=== PATIENT | male | born 1945 | race Caucasian/White ===

== ENCOUNTER 2017-03-05 18:16 | Emergency (ER) | payer MEDICARE, BC ==
--- NOTE | 2017-03-05 18:54 | RAD ---
PORTABLE CHEST 03/05/17 PROVIDED CLINICAL HISTORY: None. FINDINGS: Comparison made with the study dated 05/11/08. The cardiac silhouette appears enlarged. There is obscuration of the left cardiac margin which may re flect lingular infiltrate. There is blunting of the left costophrenic angle. Right lung appears clear . There is no evidence for pneumothorax. Left subclavian cardiac pacing device and median sternotomy changes are again seen. IMPRESSION: Left basilar pleural and parenchymal opacities as described above. Please correlate for concerns for pneumonia. Followup is recommended. POS: [facility]
[2017-03-05 19:10] LABS: #Basophils 0.1 thou/uL (0.0-0.2); #Eosinphils 0.1 thou/uL (0.0-0.7); #Lymphocytes 1.2 thou/uL (1.20-3.40); #Monocytes 0.4 thou/uL (0.11-0.59); #Neutrophils 2.3 thou/uL (1.40-6.50); %Basophils 1.4 % (0.0-1.0); %Eosinophils 1.4 % (0.0-10.0); %Lymphocytes 30.3 % (21.0-51.0); %Monocytes 9.3 % (0.0-10.0); %Neutrophils 57.6 % (42.0-75.0); Hemoglobin 13.8 g/dL (14.0-18.0); Mean Corpuscular HGB CONC 34.9 g/dL (32.0-36.0); Mean Corpuscular Hemoglobin 32.9 pg (27.0-31.0); Mean Corpuscular Volume 94.4 fl (80.0-94.0); Mean Platelet Volume 10.2 fL (7.4-10.4); Platelet Count 96 thou/uL (130-400); RBC Distribution Width 11.7 % (11.5-14.5); Red Blood Cell (RBC) Count 4.19 mill/uL (4.70-6.10); White Blood Cell (WBC) Count 4.1 thou/uL (4.8-10.8)
[2017-03-05 19:29] LABS: ALT (SGPT) 44 U/L (8-55); AST (SGOT) 34 U/L (5-34); Albumin 3.7 g/dL (3.4-4.8); Alkaline Phosphatase 59 U/L (40-150); Anion Gap 17 mmol/L (10-20); BUN (Urea Nitrogen) 17 mg/dL (8.4-25.7); Calc. Creatinine Clearance 0 mL/min (70-130); Calcium 9.1 mg/dL (7.8-10.44); Carbon Dioxide 21 mmol/L (23-31); Chloride 101 mmol/L (98-107); Estimated GFR-MDRD 63; Globulin 3.4 g/dL (2.4-3.5); Glucose 149 mg/dL (80-115); Lipase 51 U/L (8-78); Potassium 4.3 mmol/L (3.5-5.1); Protein, Total 7.1 g/dL (5.8-8.1); Sodium 135 mmol/L (136-145)
[2017-03-05 19:31] LABS: CKMB 1.2 ng/mL (0-6.6)
[2017-03-05 19:37] LABS: PLT Morphology Comment Appears Decreased; RBC Morphology Normal
--- NOTE | 2017-03-05 21:40 | CT ---
CT BRAIN 03/05/17 PROVIDED CLINICAL HISTORY: Altered mental status. FINDINGS: The ventricular system appears normal in size and morphology. There is no evidence for intracranial h emorrhage or mass effect. Chronic microvascular ischemic changes are seen. There is partial opacifica tion of the ethmoid air cells and right mastoid air cells. Extracranial soft tissues and osseous stru ctures appear otherwise unremarkable. IMPRESSION: No evidence for intracranial hemorrhage or mass effect. POS: [facility]
== END 2017-03-05 22:55 | disposition home or self-care (01) ==
LOC: ERS 18:16
DX: I95.9 Hypotension, unspecified (principal); R55 Syncope and collapse; S00.81XA Abrasion of other part of head, initial encounter; E11.9 Type 2 diabetes mellitus without complications; I25.10 Atherosclerotic heart disease of native coronary artery without angina pectoris; Z79.01 Long term (current) use of anticoagulants; Z79.4 Long term (current) use of insulin; Z79.899 Other long term (current) drug therapy; W19.XXXA Unspecified fall, initial encounter
CPT/HCPCS: 70450; 71045; 80053; 82553; 83690; 83880; 84484; 85025; 93005

== ENCOUNTER 2020-12-22 19:34 | Inpatient (IN) | payer MEDICARE, BC ==
[~2020-12-22 19:34] MED LIST: Iopamidol-370 76% 500 ML 1 ML ONE; Rocuronium Bromide 10 MG/ML (10ML VIAL) ONE
[2020-12-22] MEDS ORDERED: Ondansetron PF 4 MG/2 ML Vial ONE (19:40)
[2020-12-22] MEDS ORDERED: Lorazepam 2 MG/ML VIAL ONE ×2 (19:43→20:03)
[2020-12-22 20:14] LABS: #Eosinphils 0.1 thou/uL (0.0-0.7); #Lymphocytes 1.3 thou/uL (1.20-3.40); #Monocytes 0.4 thou/uL (0.11-0.59); #Neutrophils 3.1 thou/uL (1.40-6.50); %Basophils 0.6 % (0.0-1.0); %Lymphocytes 26.4 % (21.0-51.0); %Monocytes 7.4 % (0.0-10.0); %Neutrophils 63.5 % (42.0-75.0); Hemoglobin 14.4 g/dL (14.0-18.0); Mean Corpuscular HGB CONC 34.4 g/dL (32.0-36.0); Mean Corpuscular Hemoglobin 33.6 pg (27.0-31.0); Mean Corpuscular Volume 97.5 fL (78.0-98.0); Mean Platelet Volume 7.9 fL (7.4-10.4); Platelet Count 116 thou/uL (130-400); RBC Distribution Width 11.7 % (11.5-14.5); White Blood Cell (WBC) Count 4.9 thou/uL (4.8-10.8)
[2020-12-22 20:16] LABS: INR-International Normal Ratio 2.4; PTT 47.8 sec (22.9-36.1); Prothrombin Time 26.9 sec (12.0-14.7)
[2020-12-22 20:26] LABS: ALT (SGPT) 20 U/L (8-55); AST (SGOT) 28 U/L (5-34); Albumin 4.3 g/dL (3.4-4.8); Alkaline Phosphatase 68 U/L (40-110); Anion Gap 11 mmol/L (10-20); BUN (Urea Nitrogen) 18 mg/dL (8.4-25.7); Bilirubin, Total 0.6 mg/dL (0.2-1.2); CK (CPK) 73 U/L (30-200); Calc. Creatinine Clearance 0 mL/min (70-130); Calcium 9.3 mg/dL (7.8-10.44); Carbon Dioxide 28 mmol/L (23-31); Chloride 101 mmol/L (98-107); Globulin 3.6 g/dL (2.4-3.5); Glucose 93 mg/dL (83-110); Potassium 4.4 mmol/L (3.5-5.1); Protein, Total 7.9 g/dL (5.8-8.1); Sodium 136 mmol/L (136-145)
[2020-12-22] MEDS ORDERED: Dextrose 50% Abboject 50 ML SYRINGE SLOW IVP PRN (20:50)
[2020-12-22] MEDS ORDERED: Dextrose 5% in Water 1,000 ML IV PRN (20:50)
[2020-12-22] MEDS ORDERED: Insulin Regular 300 UNITS/3 ML VIAL SC PRN (20:50)
[2020-12-22] MEDS ORDERED: Ondansetron ODT 4 MG TAB PO PRN (20:50)
[2020-12-22] MEDS ORDERED: Phytonadione 10 MG/ML AMP ONE (20:55)
[2020-12-22] MEDS ORDERED: HUM PROTHROMBIN CPLX(PCC)4FACT 2,000 UNIT in Admixture Fee 80 EACH IV SCH (21:00)
[2020-12-22] MEDS ORDERED: HUM PROTHROMBIN CPLX(PCC)4FACT 1,000 UNIT, Human Prothrombin Complx(PCC) 500 UNIT in Ad... IV SCH (21:00)
[2020-12-22 21:06] LABS: Actual Bicarbonate (HCO3a) 19.1 mEq/L (22-28); Analyzer IN Cardio ER; CO2 Tension 26.6 mmHg (35.0-45.0); Calcium, Ionized (arterial) 1.11 mmol/L (1.12-1.30); Carboxyhemoglobin (COHb) 2.5 gm% (0.0-3.0); Hemoglobin (Hb) 14.2 g/dL (14.0-18.0); O2 Tension (PaO2), arterial 198.5 mmHg (> 70.0); Potassium - ABG Lab 4.11 mmol/L (3.70-5.30); pH, Arterial 7.47 (7.35-7.45)
[2020-12-22 21:09] LABS: Puncture Site RBA
[2020-12-22] MEDS ORDERED: Ventilator Sedation Protocol 1 EACH FS SCH (21:15)
[2020-12-22] MEDS ORDERED: Propofol 1,000 MG/100 ML VIAL IV PRN (21:30)
[2020-12-22] MEDS ORDERED: Lorazepam 2 MG/ML VIAL SLOW IVP PRN (21:30)
[2020-12-22] MEDS ORDERED: Propofol BOLUS 1,000 MG/100 ML VIAL IV PRN (21:30)
[2020-12-22] MEDS ORDERED: DISCONTINUE PREVIOUS NARCOTIC PAIN MEDICATIONS AND BENZODIAZEPINES FS SCH (21:30)
[2020-12-22] MEDS ORDERED: Fentanyl CADD 100 ML IV SCH (21:30)
[2020-12-22] MEDS ORDERED: Fentanyl BOLUS 250 ML IVPB PRN (21:30)
[2020-12-22] MEDS ORDERED: Morphine 2 MG/ML VIAL SLOW IVP PRN (21:30)
[2020-12-22 21:32] LABS: Magnesium 1.6 mg/dL (1.6-2.6); Phosphorus 3.2 mg/dL (2.3-4.7)
[2020-12-22] MEDS ORDERED: levETIRAcetam in NS 1,000 MG in Premix Bag 1 BAG IVPB SCH (22:30)
[2020-12-22] MEDS ORDERED: Fentanyl 100 MCG/2 ML VIAL ONE ×2 (22:36→23:02)
[2020-12-23] MEDS ORDERED: Magnesium Sulfate 3 GM in Sodium Chloride 0.9% 250 ML 250 ML IVPB SCH (01:00)
[2020-12-23] MEDS: Sodium Chloride 0.9% 1,000 ML IV SCH ×4 (01:20→17:43)
[2020-12-23 04:03] LABS: #Lymphocytes 0.7 thou/uL (1.20-3.40); #Monocytes 0.5 thou/uL (0.11-0.59); #Neutrophils 6.1 thou/uL (1.40-6.50); %Basophils 0.1 % (0.0-1.0); %Eosinophils 0.4 % (0.0-10.0); %Monocytes 6.5 % (0.0-10.0); Hemoglobin 13.4 g/dL (14.0-18.0); Mean Corpuscular HGB CONC 35.3 g/dL (32.0-36.0); Mean Corpuscular Hemoglobin 34.5 pg (27.0-31.0); Mean Corpuscular Volume 97.9 fL (78.0-98.0); Mean Platelet Volume 8.7 fL (7.4-10.4); Platelet Count 92 thou/uL (130-400); RBC Distribution Width 11.6 % (11.5-14.5); Red Blood Cell (RBC) Count 3.87 mill/uL (4.70-6.10); White Blood Cell (WBC) Count 7.3 thou/uL (4.8-10.8)
[2020-12-23 04:14] LABS: INR-International Normal Ratio 1.2; PTT 35.4 sec (22.9-36.1); Prothrombin Time 15.3 sec (12.0-14.7)
[2020-12-23 04:22] LABS: Anion Gap 15 mmol/L (10-20); BUN (Urea Nitrogen) 16 mg/dL (8.4-25.7); Calc. Creatinine Clearance 82 mL/min (70-130); Calcium 8.7 mg/dL (7.8-10.44); Carbon Dioxide 19 mmol/L (23-31); Chloride 106 mmol/L (98-107); Glucose 117 mg/dL (83-110); Potassium 4.2 mmol/L (3.5-5.1); Sodium 136 mmol/L (136-145)
[2020-12-23] MEDS: Famotidine/PF 20 mg/2ml Vial SLOW IVP SCH ×3 (04:28→21:53)
[2020-12-23] MEDS: Acetaminophen 650 MG/20.3 ML UDCUP PO SCH ×4 (04:33→21:53)
[2020-12-23 05:21] LABS: Phosphorus 2.2 mg/dL (2.3-4.7)
[2020-12-23] MEDS: levETIRAcetam in NS 500 MG in Premix Bag 1 BAG IVPB SCH ×2 (08:31→21:52)
[2020-12-23 08:59] LABS: Actual Bicarbonate (HCO3a) 19.8 mEq/L (22-28); CO2 Tension 32.1 mmHg (35.0-45.0); Calcium, Ionized (arterial) 1.09 mmol/L (1.12-1.30); Carboxyhemoglobin (COHb) 0.2 gm% (0.0-3.0); Hemoglobin (Hb) 12.2 g/dL (14.0-18.0); Potassium - ABG Lab 3.81 mmol/L (3.70-5.30); pH, Arterial 7.41 (7.35-7.45)
[2020-12-23 10:48] LABS: ALV-art Gradient 59.775 mmHg (0-20); Puncture Site RBA
[2020-12-23] MEDS ORDERED: Calcium Chloride 1 GM/10 ML Abboject SYRINGE IVP SCH (13:00)
[2020-12-23 16:24] LABS: SARS-CoV-2 PCR by NAA Not Detected (NotDetected)
[2020-12-23] MEDS: Morphine 4 MG/ML VIAL SLOW IVP PRN ×2 (17:40→19:21)
[2020-12-23] MEDS: hydrALAZINE 20 MG/ML VIAL SLOW IVP PRN (17:41)
[2020-12-24] MEDS: Sodium Chloride 0.9% 1,000 ML IV SCH ×2 (03:46→14:27)
[2020-12-24] MEDS: Acetaminophen 650 MG/20.3 ML UDCUP PO SCH ×4 (04:04→22:12)
[2020-12-24 04:36] LABS: INR-International Normal Ratio 1.2; PTT 38.7 sec (22.9-36.1); Prothrombin Time 15.1 sec (12.0-14.7)
[2020-12-24 04:39] LABS: #Lymphocytes 0.9 thou/uL (1.20-3.40); #Monocytes 0.5 thou/uL (0.11-0.59); #Neutrophils 6.1 thou/uL (1.40-6.50); %Basophils 0.1 % (0.0-1.0); %Eosinophils 0.2 % (0.0-10.0); %Lymphocytes 12.4 % (21.0-51.0); %Monocytes 5.9 % (0.0-10.0); %Neutrophils 81.3 % (42.0-75.0); Hemoglobin 11.4 g/dL (14.0-18.0); Mean Corpuscular HGB CONC 34.8 g/dL (32.0-36.0); Mean Corpuscular Hemoglobin 33.8 pg (27.0-31.0); Mean Corpuscular Volume 97.1 fL (78.0-98.0); Mean Platelet Volume 8.1 fL (7.4-10.4); Platelet Count 89 thou/uL (130-400); RBC Distribution Width 11.7 % (11.5-14.5); Red Blood Cell (RBC) Count 3.39 mill/uL (4.70-6.10); White Blood Cell (WBC) Count 7.6 thou/uL (4.8-10.8)
[2020-12-24 04:47] LABS: Anion Gap 12 mmol/L (10-20); BUN (Urea Nitrogen) 12 mg/dL (8.4-25.7); Calc. Creatinine Clearance 89 mL/min (70-130); Calcium 8.5 mg/dL (7.8-10.44); Carbon Dioxide 22 mmol/L (23-31); Chloride 106 mmol/L (98-107); Glucose 113 mg/dL (83-110); Magnesium 1.6 mg/dL (1.6-2.6); Potassium 3.6 mmol/L (3.5-5.1); Sodium 136 mmol/L (136-145)
[2020-12-24 04:51] LABS: Phosphorus 1.9 mg/dL (2.3-4.7)
[2020-12-24] MEDS ORDERED: Potassium Phosphate 30 MMOL in Sodium Chloride 0.9% 250 ML 250 ML IVPB SCH (06:00)
[2020-12-24] MEDS ORDERED: Magnesium Sulfate 3 GM in Sodium Chloride 0.9% 250 ML 250 ML IVPB SCH (06:00)
[2020-12-24 06:55] LABS: Base Excess (BEa) -2.5 mEq/L (-2.0 to +3.0); CO2 Tension 28.5 mmHg (35.0-45.0); Calcium, Ionized (arterial) 1.13 mmol/L (1.12-1.30); Carboxyhemoglobin (COHb) 0.9 gm% (0.0-3.0); Hemoglobin (Hb) 14.2 g/dL (14.0-18.0); O2 Tension (PaO2), arterial 99.5 mmHg (> 70.0); Potassium - ABG Lab 3.61 mmol/L (3.70-5.30); pH, Arterial 7.46 (7.35-7.45)
[2020-12-24 07:01] LABS: ALV-art Gradient 78.775 mmHg (0-20); Puncture Site RRA
[2020-12-24] MEDS: Famotidine/PF 20 mg/2ml Vial SLOW IVP SCH ×2 (07:58→22:12)
[2020-12-24] MEDS: levETIRAcetam in NS 500 MG in Premix Bag 1 BAG IVPB SCH ×2 (07:58→22:12)
[2020-12-24] MEDS ORDERED: Potassium Phosphate 30 MMOL in Sodium Chloride 0.9% 500 ML IVPB SCH (09:00)
[2020-12-24] MEDS ORDERED: Magnesium Sulfate 3 GM in Sodium Chloride 0.9% 100 ML IV SCH (09:00)
[2020-12-24 11:34] LABS: Actual Bicarbonate (HCO3a) 19.3 mEq/L (22-28); Base Excess (BEa) -3.5 mEq/L (-2.0 to +3.0); CO2 Tension 28.1 mmHg (35.0-45.0); Calcium, Ionized (arterial) 1.13 mmol/L (1.12-1.30); Carboxyhemoglobin (COHb) 0.1 gm% (0.0-3.0); Hemoglobin (Hb) 11.4 g/dL (14.0-18.0); Potassium - ABG Lab 3.98 mmol/L (3.70-5.30); pH, Arterial 7.46 (7.35-7.45)
[2020-12-24 11:36] LABS: Puncture Site RBA
[2020-12-24 11:37] LABS: ALV-art Gradient 78.775 mmHg (0-20)
[2020-12-24] MEDS: Morphine 4 MG/ML VIAL SLOW IVP PRN (15:50)
[2020-12-24] MEDS: hydrALAZINE 20 MG/ML VIAL SLOW IVP PRN (22:12)
[2020-12-25] MEDS: Sodium Chloride 0.9% 1,000 ML IV SCH ×4 (00:45→21:19)
[2020-12-25] MEDS: Acetaminophen 650 MG/20.3 ML UDCUP PO SCH ×4 (03:46→21:19)
[2020-12-25 03:58] LABS: #Lymphocytes 1.1 thou/uL (1.20-3.40); #Monocytes 0.4 thou/uL (0.11-0.59); #Neutrophils 5.3 thou/uL (1.40-6.50); %Basophils 0.1 % (0.0-1.0); %Eosinophils 0.7 % (0.0-10.0); %Lymphocytes 15.7 % (21.0-51.0); %Neutrophils 77.6 % (42.0-75.0); Hemoglobin 11.3 g/dL (14.0-18.0); Mean Corpuscular HGB CONC 34.8 g/dL (32.0-36.0); Mean Corpuscular Hemoglobin 33.7 pg (27.0-31.0); Mean Corpuscular Volume 96.8 fL (78.0-98.0); Mean Platelet Volume 7.5 fL (7.4-10.4); Platelet Count 89 thou/uL (130-400); RBC Distribution Width 11.7 % (11.5-14.5); Red Blood Cell (RBC) Count 3.35 mill/uL (4.70-6.10); White Blood Cell (WBC) Count 6.9 thou/uL (4.8-10.8)
[2020-12-25 04:04] LABS: INR-International Normal Ratio 1.2; PTT 40.9 sec (22.9-36.1)
[2020-12-25 05:12] LABS: Anion Gap 12 mmol/L (10-20); BUN (Urea Nitrogen) 9 mg/dL (8.4-25.7); Calc. Creatinine Clearance 100 mL/min (70-130); Carbon Dioxide 18 mmol/L (23-31); Chloride 110 mmol/L (98-107); Glucose 93 mg/dL (83-110); Phosphorus 2.5 mg/dL (2.3-4.7); Potassium 3.9 mmol/L (3.5-5.1); Sodium 136 mmol/L (136-145)
[2020-12-25 07:11] LABS: Actual Bicarbonate (HCO3a) 19.5 mEq/L (22-28); Base Excess (BEa) -3.4 mEq/L (-2.0 to +3.0); CO2 Tension 28.7 mmHg (35.0-45.0); Calcium, Ionized (arterial) 1.09 mmol/L (1.12-1.30); Carboxyhemoglobin (COHb) 0.3 gm% (0.0-3.0); Hemoglobin (Hb) 11.2 g/dL (14.0-18.0); O2 Tension (PaO2), arterial 104.6 mmHg (> 70.0); Potassium - ABG Lab 3.71 mmol/L (3.70-5.30); pH, Arterial 7.45 (7.35-7.45)
[2020-12-25 07:12] LABS: ALV-art Gradient 73.425 mmHg (0-20); Puncture Site RRA
[2020-12-25] MEDS ORDERED: Calcium Chloride 1 GM/10 ML Abboject SYRINGE IVP SCH (07:30)
[2020-12-25] MEDS: levETIRAcetam in NS 500 MG in Premix Bag 1 BAG IVPB SCH ×2 (08:06→21:19)
[2020-12-25] MEDS: Famotidine/PF 20 mg/2ml Vial SLOW IVP SCH ×2 (08:07→21:19)
[2020-12-25] MEDS ORDERED: Sacubitril 49 MG/Valsartan 51 MG TABLET PO SCH (09:00)
[2020-12-25] MEDS: Morphine 4 MG/ML VIAL SLOW IVP PRN ×2 (13:35→21:28)
[2020-12-26 04:41] LABS: #Lymphocytes 0.8 thou/uL (1.20-3.40); #Monocytes 0.4 thou/uL (0.11-0.59); #Neutrophils 5.2 thou/uL (1.40-6.50); %Basophils 0.1 % (0.0-1.0); %Eosinophils 0.5 % (0.0-10.0); %Lymphocytes 12.8 % (21.0-51.0); %Monocytes 6.6 % (0.0-10.0); %Neutrophils 79.9 % (42.0-75.0); Hemoglobin 10.7 g/dL (14.0-18.0); Mean Corpuscular HGB CONC 33.2 g/dL (32.0-36.0); Mean Corpuscular Hemoglobin 32.4 pg (27.0-31.0); Mean Corpuscular Volume 97.8 fL (78.0-98.0); Mean Platelet Volume 8.2 fL (7.4-10.4); Platelet Count 96 thou/uL (130-400); RBC Distribution Width 11.6 % (11.5-14.5); Red Blood Cell (RBC) Count 3.29 mill/uL (4.70-6.10); White Blood Cell (WBC) Count 6.5 thou/uL (4.8-10.8)
[2020-12-26 04:59] LABS: Anion Gap 12 mmol/L (10-20); BUN (Urea Nitrogen) 10 mg/dL (8.4-25.7); Calc. Creatinine Clearance 101 mL/min (70-130); Calcium 8.3 mg/dL (7.8-10.44); Carbon Dioxide 21 mmol/L (23-31); Chloride 107 mmol/L (98-107); Glucose 137 mg/dL (83-110); Magnesium 1.6 mg/dL (1.6-2.6); Phosphorus 2.4 mg/dL (2.3-4.7); Potassium 3.6 mmol/L (3.5-5.1); Sodium 136 mmol/L (136-145)
[2020-12-26] MEDS: Acetaminophen 650 MG/20.3 ML UDCUP PO SCH ×4 (05:42→22:34)
[2020-12-26] MEDS: Sodium Chloride 0.9% 1,000 ML IV SCH ×3 (07:28→22:35)
[2020-12-26] MEDS ORDERED: Carvedilol 6.25 MG TAB PO SCH (09:00)
[2020-12-26] MEDS ORDERED: Magnesium Sulfate 4 GM in Sodium Chloride 0.9% 250 ML 250 ML IVPB SCH (09:00)
[2020-12-26] MEDS ORDERED: Sacubitril 49 MG/Valsartan 51 MG TABLET PO SCH (09:00)
[2020-12-26] MEDS ORDERED: Amantadine HCl 100 mg Capsule PO SCH (09:30)
[2020-12-26] MEDS: levETIRAcetam in NS 500 MG in Premix Bag 1 BAG IVPB SCH ×2 (09:46→20:16)
[2020-12-26] MEDS: Famotidine/PF 20 mg/2ml Vial SLOW IVP SCH ×2 (09:47→20:16)
[2020-12-26] MEDS: Insulin Regular 300 UNITS/3 ML VIAL SC PRN (12:55)
[2020-12-26] MEDS: Ondansetron PF 4 MG/2 ML Vial IVP PRN (14:43)
[2020-12-26] MEDS: Morphine 4 MG/ML VIAL SLOW IVP PRN ×2 (18:34→20:08)
[2020-12-26] MEDS: Amantadine HCl 100 mg Capsule PO SCH (20:15)
[2020-12-26] MEDS: Sacubitril 49 MG/Valsartan 51 MG TABLET PO SCH (20:16)
[2020-12-26] MEDS: hydrALAZINE 20 MG/ML VIAL SLOW IVP PRN (21:06)
[2020-12-26] MEDS ORDERED: Scopolamine 1.5 mg/72 hour Patch TD SCH (22:30)
[2020-12-27] MEDS: Acetaminophen 650 MG/20.3 ML UDCUP PO SCH ×4 (04:39→21:45)
[2020-12-27] MEDS: Sodium Chloride 0.9% 1,000 ML IV SCH (05:52)
[2020-12-27 06:13] LABS: #Basophils 0.1 thou/uL (0.0-0.2); #Lymphocytes 0.6 thou/uL (1.20-3.40); #Monocytes 0.3 thou/uL (0.11-0.59); #Neutrophils 4.7 thou/uL (1.40-6.50); %Basophils 0.9 % (0.0-1.0); %Eosinophils 0.7 % (0.0-10.0); %Lymphocytes 10.6 % (21.0-51.0); %Neutrophils 81.7 % (42.0-75.0); Hemoglobin 11.4 g/dL (14.0-18.0); Mean Corpuscular HGB CONC 35.2 g/dL (32.0-36.0); Mean Corpuscular Hemoglobin 34.1 pg (27.0-31.0); Mean Platelet Volume 7.6 fL (7.4-10.4); Platelet Count 111 thou/uL (130-400); RBC Distribution Width 11.6 % (11.5-14.5); Red Blood Cell (RBC) Count 3.34 mill/uL (4.70-6.10); White Blood Cell (WBC) Count 5.7 thou/uL (4.8-10.8)
[2020-12-27] MEDS ORDERED: Sodium Chloride 0.9% 500 ML IV SCH (06:15)
[2020-12-27 06:23] LABS: INR-International Normal Ratio 1.2; Prothrombin Time 15.7 sec (12.0-14.7)
[2020-12-27 06:41] LABS: Anion Gap 12 mmol/L (10-20); BUN (Urea Nitrogen) 14 mg/dL (8.4-25.7); Calc. Creatinine Clearance 107 mL/min (70-130); Calcium 8.2 mg/dL (7.8-10.44); Carbon Dioxide 20 mmol/L (23-31); Chloride 109 mmol/L (98-107); Glucose 146 mg/dL (83-110); Phosphorus 2.3 mg/dL (2.3-4.7); Potassium 3.3 mmol/L (3.5-5.1); Sodium 138 mmol/L (136-145)
[2020-12-27] MEDS ORDERED: Potassium Phosphate 30 MMOL in Sodium Chloride 0.9% 250 ML 250 ML IVPB SCH (09:00)
[2020-12-27] MEDS: Senokot S 8.6-50 MG TAB PO SCH ×2 (09:04→20:53)
[2020-12-27] MEDS: Polyethylene Glycol 3350 17 GM Packet PO SCH (09:04)
[2020-12-27] MEDS: Sacubitril 49 MG/Valsartan 51 MG TABLET PO SCH ×2 (09:05→21:44)
[2020-12-27] MEDS: Amantadine HCl 100 mg Capsule PO SCH ×2 (09:05→21:13)
[2020-12-27] MEDS: levETIRAcetam in NS 500 MG in Premix Bag 1 BAG IVPB SCH ×2 (09:06→21:13)
[2020-12-27] MEDS: Furosemide 20 MG/2 ML VIAL SLOW IVP SCH ×2 (09:07→16:42)
[2020-12-27] MEDS: Famotidine/PF 20 mg/2ml Vial SLOW IVP SCH ×2 (09:07→21:13)
[2020-12-27] MEDS: hydrALAZINE 20 MG/ML VIAL SLOW IVP PRN (16:41)
[2020-12-27] MEDS: Ondansetron PF 4 MG/2 ML Vial IVP PRN (21:17)
[2020-12-27 21:21] LABS: Actual Bicarbonate (HCO3a) 24.1 mEq/L (22-28); Base Excess (BEa) -0.7 mEq/L (-2.0 to +3.0); CO2 Tension 40.3 mmHg (35.0-45.0); Carboxyhemoglobin (COHb) 0.2 gm% (0.0-3.0); O2 Tension (PaO2), arterial 75.8 mmHg (> 70.0); Potassium - ABG Lab 3.38 mmol/L (3.70-5.30)
[2020-12-27 21:33] LABS: ALV-art Gradient 73.465 mmHg (0-20); Puncture Site LBA
[2020-12-27] MEDS ORDERED: Calcium Chloride 13.6 MEQ in Sodium Chloride 0.9% 100 ML IVPB SCH (21:45)
[2020-12-27] MEDS: Potassium Chloride 20 MEQ in Premix Bag 1 BAG IVPB SCH ×2 (22:01→22:05)
[2020-12-28 05:05] LABS: #Lymphocytes 0.6 thou/uL (1.20-3.40); #Monocytes 0.4 thou/uL (0.11-0.59); #Neutrophils 5.4 thou/uL (1.40-6.50); %Basophils 0.1 % (0.0-1.0); %Eosinophils 0.2 % (0.0-10.0); %Lymphocytes 9.7 % (21.0-51.0); %Monocytes 6.5 % (0.0-10.0); %Neutrophils 83.6 % (42.0-75.0); Hemoglobin 11.2 g/dL (14.0-18.0); Mean Corpuscular HGB CONC 34.3 g/dL (32.0-36.0); Mean Corpuscular Hemoglobin 33.3 pg (27.0-31.0); Mean Corpuscular Volume 96.9 fL (78.0-98.0); Mean Platelet Volume 7.7 fL (7.4-10.4); Platelet Count 129 thou/uL (130-400); RBC Distribution Width 11.6 % (11.5-14.5); Red Blood Cell (RBC) Count 3.38 mill/uL (4.70-6.10); White Blood Cell (WBC) Count 6.4 thou/uL (4.8-10.8)
[2020-12-28] MEDS ORDERED: Furosemide 40 MG/4 ML VIAL ONE (05:22)
[2020-12-28] MEDS: Furosemide 20 MG/2 ML VIAL SLOW IVP SCH (05:23)
[2020-12-28] MEDS: Acetaminophen 650 MG/20.3 ML UDCUP PO SCH ×4 (05:25→22:23)
[2020-12-28 05:27] LABS: Anion Gap 12 mmol/L (10-20); BUN (Urea Nitrogen) 17 mg/dL (8.4-25.7); Calc. Creatinine Clearance 114 mL/min (70-130); Calcium 8.9 mg/dL (7.8-10.44); Carbon Dioxide 25 mmol/L (23-31); Chloride 105 mmol/L (98-107); Glucose 151 mg/dL (83-110); Magnesium 1.6 mg/dL (1.6-2.6); Phosphorus 2.5 mg/dL (2.3-4.7); Potassium 3.7 mmol/L (3.5-5.1); Sodium 138 mmol/L (136-145)
[2020-12-28] MEDS: Insulin Regular 300 UNITS/3 ML VIAL SC PRN (06:51)
[2020-12-28] MEDS ORDERED: Potassium Phosphate 30 MMOL, Magnesium Sulfate 3 GM in Sodium Chloride 0.9% 250 ML 250 ML IVPB SCH (07:30)
[2020-12-28] MEDS ORDERED: Magnesium Sulfate 3 GM in Sodium Chloride 0.9% 100 ML IVPB SCH (07:30)
[2020-12-28] MEDS: Famotidine/PF 20 mg/2ml Vial SLOW IVP SCH ×2 (09:09→22:23)
[2020-12-28] MEDS: Senokot S 8.6-50 MG TAB PO SCH ×2 (09:10→22:23)
[2020-12-28] MEDS: Polyethylene Glycol 3350 17 GM Packet PO SCH (09:10)
[2020-12-28] MEDS: Sacubitril 49 MG/Valsartan 51 MG TABLET PO SCH ×2 (09:10→22:23)
[2020-12-28] MEDS: Amantadine HCl 100 mg Capsule PO SCH ×2 (09:11→22:23)
[2020-12-28] MEDS: levETIRAcetam in NS 500 MG in Premix Bag 1 BAG IVPB SCH ×2 (09:16→22:22)
[2020-12-28] MEDS: Bisacodyl 10 MG SUPP PR SCH (09:17)
[2020-12-28] MEDS ORDERED: Metoclopramide HCl 10 MG/2 ML VIAL IVP PRN (10:08)
[2020-12-28] MEDS ORDERED: Propofol 1,000 MG/100 ML VIAL IV ONE (11:49)
[2020-12-28] MEDS ORDERED: Ventilator Sedation Protocol 1 EACH FS ONE (11:54)
[2020-12-28 12:30] LABS: Actual Bicarbonate (HCO3a) 22.6 mEq/L (22-28); Base Excess (BEa) 0.5 mEq/L (-2.0 to +3.0); Calcium, Ionized (arterial) 1.14 mmol/L (1.12-1.30); Carboxyhemoglobin (COHb) 0.5 gm% (0.0-3.0); Hemoglobin (Hb) 12.3 g/dL (14.0-18.0); O2 Tension (PaO2), arterial 71.7 mmHg (> 70.0); Potassium - ABG Lab 3.31 mmol/L (3.70-5.30); pH, Arterial 7.51 (7.35-7.45)
[2020-12-28] MEDS ORDERED: Propofol 1,000 MG/100 ML VIAL IV PRN (12:30)
[2020-12-28] MEDS ORDERED: Morphine 2 MG/ML VIAL SLOW IVP PRN (12:30)
[2020-12-28] MEDS ORDERED: DISCONTINUE PREVIOUS NARCOTIC PAIN MEDICATIONS AND BENZODIAZEPINES FS SCH (12:30)
[2020-12-28] MEDS ORDERED: Fentanyl CADD 100 ML IV SCH (12:30)
[2020-12-28] MEDS ORDERED: Lorazepam 2 MG/ML VIAL SLOW IVP PRN (12:30)
[2020-12-28] MEDS ORDERED: Morphine 4 MG/ML VIAL SLOW IVP PRN (12:30)
[2020-12-28] MEDS ORDERED: Fentanyl BOLUS 250 ML IVPB PRN (12:30)
[2020-12-28] MEDS ORDERED: Propofol BOLUS 1,000 MG/100 ML VIAL IV PRN (12:30)
[2020-12-28 12:31] LABS: Puncture Site RRA
[2020-12-28] MEDS ORDERED: Rocuronium Bromide 10 MG/ML (10ML VIAL) IVP SCH (13:00)
[2020-12-29] MEDS: Acetaminophen 650 MG/20.3 ML UDCUP PO SCH ×4 (04:28→22:06)
[2020-12-29 06:13] LABS: #Lymphocytes 0.6 thou/uL (1.20-3.40); #Monocytes 0.4 thou/uL (0.11-0.59); #Neutrophils 5.6 thou/uL (1.40-6.50); %Eosinophils 0.2 % (0.0-10.0); %Lymphocytes 8.6 % (21.0-51.0); %Monocytes 5.8 % (0.0-10.0); %Neutrophils 85.4 % (42.0-75.0); Hemoglobin 11.9 g/dL (14.0-18.0); Mean Corpuscular HGB CONC 34.5 g/dL (32.0-36.0); Mean Corpuscular Hemoglobin 33.5 pg (27.0-31.0); Mean Corpuscular Volume 96.9 fL (78.0-98.0); Mean Platelet Volume 7.5 fL (7.4-10.4); Platelet Count 137 thou/uL (130-400); RBC Distribution Width 11.5 % (11.5-14.5); Red Blood Cell (RBC) Count 3.55 mill/uL (4.70-6.10); White Blood Cell (WBC) Count 6.5 thou/uL (4.8-10.8)
[2020-12-29 06:24] LABS: Anion Gap 12 mmol/L (10-20); BUN (Urea Nitrogen) 24 mg/dL (8.4-25.7); Calc. Creatinine Clearance 110 mL/min (70-130); Calcium 8.8 mg/dL (7.8-10.44); Carbon Dioxide 29 mmol/L (23-31); Chloride 103 mmol/L (98-107); Glucose 206 mg/dL (83-110); Magnesium 1.9 mg/dL (1.6-2.6); Phosphorus 2.1 mg/dL (2.3-4.7); Potassium 3.5 mmol/L (3.5-5.1); Sodium 140 mmol/L (136-145)
[2020-12-29 07:14] LABS: Actual Bicarbonate (HCO3a) 27.4 mEq/L (22-28); Base Excess (BEa) 4.1 mEq/L (-2.0 to +3.0); Calcium, Ionized (arterial) 1.13 mmol/L (1.12-1.30); Carboxyhemoglobin (COHb) 0.5 gm% (0.0-3.0); Hemoglobin (Hb) 13.8 g/dL (14.0-18.0); O2 Tension (PaO2), arterial 93.5 mmHg (> 70.0); Potassium - ABG Lab 3.29 mmol/L (3.70-5.30); pH, Arterial 7.49 (7.35-7.45)
[2020-12-29 07:57] LABS: Puncture Site RRA
[2020-12-29] MEDS: Amantadine HCl 100 mg Capsule PO SCH ×2 (08:46→22:04)
[2020-12-29] MEDS: Polyethylene Glycol 3350 17 GM Packet PO SCH (08:46)
[2020-12-29] MEDS: Famotidine/PF 20 mg/2ml Vial SLOW IVP SCH ×2 (08:46→22:03)
[2020-12-29] MEDS: Senokot S 8.6-50 MG TAB PO SCH ×2 (08:46→22:04)
[2020-12-29] MEDS: Sacubitril 49 MG/Valsartan 51 MG TABLET PO SCH ×2 (08:47→22:04)
[2020-12-29] MEDS: levETIRAcetam in NS 500 MG in Premix Bag 1 BAG IVPB SCH ×2 (08:50→22:32)
[2020-12-29] MEDS: Bisacodyl 10 MG SUPP PR SCH (09:09)
[2020-12-29] MEDS ORDERED: Magnesium 2 GM/50 ML 2 GM in Premix Bag 1 BAG IVPB SCH (09:15)
[2020-12-29] MEDS: Ondansetron PF 4 MG/2 ML Vial IVP PRN (13:01)
[2020-12-30] MEDS: Acetaminophen 650 MG/20.3 ML UDCUP PO SCH ×4 (04:50→21:16)
[2020-12-30 06:01] LABS: #Lymphocytes 0.8 thou/uL (1.20-3.40); #Monocytes 0.4 thou/uL (0.11-0.59); #Neutrophils 5.3 thou/uL (1.40-6.50); %Basophils 0.3 % (0.0-1.0); %Eosinophils 0.4 % (0.0-10.0); %Lymphocytes 11.4 % (21.0-51.0); %Monocytes 6.1 % (0.0-10.0); %Neutrophils 81.8 % (42.0-75.0); Hemoglobin 11.1 g/dL (14.0-18.0); Mean Corpuscular HGB CONC 33.6 g/dL (32.0-36.0); Mean Corpuscular Hemoglobin 33.3 pg (27.0-31.0); Mean Corpuscular Volume 99.1 fL (78.0-98.0); Mean Platelet Volume 7.5 fL (7.4-10.4); Platelet Count 133 thou/uL (130-400); RBC Distribution Width 11.5 % (11.5-14.5); Red Blood Cell (RBC) Count 3.32 mill/uL (4.70-6.10); White Blood Cell (WBC) Count 6.5 thou/uL (4.8-10.8)
[2020-12-30 06:54] LABS: Anion Gap 14 mmol/L (10-20); BUN (Urea Nitrogen) 28 mg/dL (8.4-25.7); Calc. Creatinine Clearance 97 mL/min (70-130); Calcium 8.5 mg/dL (7.8-10.44); Carbon Dioxide 23 mmol/L (23-31); Chloride 105 mmol/L (98-107); Glucose 250 mg/dL (83-110); Magnesium 2.1 mg/dL (1.6-2.6); Potassium 3.8 mmol/L (3.5-5.1); Sodium 138 mmol/L (136-145)
[2020-12-30 07:32] LABS: Phosphorus 1.9 mg/dL (2.3-4.7)
[2020-12-30] MEDS ORDERED: Potassium Phosphate 30 MMOL in Sodium Chloride 0.9% 250 ML 250 ML IVPB SCH (07:45)
[2020-12-30] MEDS: Bisacodyl 10 MG SUPP PR SCH (07:53)
[2020-12-30] MEDS: Famotidine/PF 20 mg/2ml Vial SLOW IVP SCH ×2 (07:53→21:16)
[2020-12-30] MEDS: Senokot S 8.6-50 MG TAB PO SCH ×2 (07:53→21:15)
[2020-12-30] MEDS: Sacubitril 49 MG/Valsartan 51 MG TABLET PO SCH ×2 (07:53→21:15)
[2020-12-30] MEDS: Amantadine HCl 100 mg Capsule PO SCH ×2 (07:54→21:15)
[2020-12-30] MEDS: Polyethylene Glycol 3350 17 GM Packet PO SCH (07:54)
[2020-12-30] MEDS: levETIRAcetam in NS 500 MG in Premix Bag 1 BAG IVPB SCH ×2 (08:59→21:16)
[2020-12-30] MEDS ORDERED: Sodium Chloride 0.9% 1,000 ML IV SCH ×2 (10:45→18:30)
[2020-12-30] MEDS ORDERED: Sodium Chloride 0.9% 500 ML IV SCH (10:49)
[2020-12-30] MEDS: Metoclopramide HCl 10 MG/2 ML VIAL IVP SCH ×2 (10:55→17:58)
[2020-12-30] MEDS: hydrALAZINE 20 MG/ML VIAL SLOW IVP PRN (21:19)
[2020-12-31] MEDS: Metoclopramide HCl 10 MG/2 ML VIAL IVP SCH ×3 (03:25→18:00)
[2020-12-31 04:14] LABS: #Lymphocytes 0.5 thou/uL (1.20-3.40); #Monocytes 0.5 thou/uL (0.11-0.59); #Neutrophils 5.8 thou/uL (1.40-6.50); %Eosinophils 0.2 % (0.0-10.0); %Lymphocytes 7.5 % (21.0-51.0); %Monocytes 6.9 % (0.0-10.0); %Neutrophils 85.4 % (42.0-75.0); Hemoglobin 10.9 g/dL (14.0-18.0); Mean Corpuscular HGB CONC 35.2 g/dL (32.0-36.0); Mean Corpuscular Hemoglobin 34.5 pg (27.0-31.0); Mean Corpuscular Volume 98.2 fL (78.0-98.0); Mean Platelet Volume 7.4 fL (7.4-10.4); Platelet Count 158 thou/uL (130-400); RBC Distribution Width 11.5 % (11.5-14.5); Red Blood Cell (RBC) Count 3.17 mill/uL (4.70-6.10); White Blood Cell (WBC) Count 6.8 thou/uL (4.8-10.8)
[2020-12-31] MEDS: Acetaminophen 650 MG/20.3 ML UDCUP PO SCH ×4 (04:40→21:01)
[2020-12-31 04:44] LABS: Anion Gap 11 mmol/L (10-20); BUN (Urea Nitrogen) 24 mg/dL (8.4-25.7); Calc. Creatinine Clearance 102 mL/min (70-130); Calcium 8.8 mg/dL (7.8-10.44); Carbon Dioxide 27 mmol/L (23-31); Chloride 107 mmol/L (98-107); Glucose 211 mg/dL (83-110); Magnesium 1.9 mg/dL (1.6-2.6); Potassium 3.2 mmol/L (3.5-5.1); Sodium 142 mmol/L (136-145)
[2020-12-31] MEDS ORDERED: Potassium Chloride 40 MEQ in Premix Bag 1 BAG IVPB SCH (07:30)
[2020-12-31] MEDS ORDERED: Magnesium Sulfate 3 GM in Sodium Chloride 0.9% 100 ML IV SCH (07:30)
[2020-12-31] MEDS ORDERED: Potassium Chloride 40 MEQ in Sodium Chloride 0.9% 250 ML 250 ML IVPB SCH (07:45)
[2020-12-31] MEDS: Amantadine HCl 100 mg Capsule PO SCH ×2 (07:51→21:02)
[2020-12-31] MEDS: Famotidine/PF 20 mg/2ml Vial SLOW IVP SCH ×2 (07:51→21:02)
[2020-12-31] MEDS: Senokot S 8.6-50 MG TAB PO SCH ×2 (07:52→21:02)
[2020-12-31] MEDS: levETIRAcetam in NS 500 MG in Premix Bag 1 BAG IVPB SCH ×2 (07:52→21:03)
[2020-12-31] MEDS: Bisacodyl 10 MG SUPP PR SCH (07:52)
[2020-12-31] MEDS: Sacubitril 49 MG/Valsartan 51 MG TABLET PO SCH ×2 (07:52→21:02)
[2020-12-31] MEDS: Polyethylene Glycol 3350 17 GM Packet PO SCH (07:53)
[2020-12-31 16:17] LABS: SARS-CoV-2 PCR by NAA Not Detected (NotDetected)
[2020-12-31] MEDS ORDERED: Potassium Chloride 30 MEQ in Premix Bag 1 BAG IVPB SCH (16:30)
[2020-12-31] MEDS ORDERED: Potassium Chloride 20 MEQ in Premix Bag 1 BAG IVPB SCH (16:30)
[2020-12-31] MEDS: Sodium Chloride 0.9% 1,000 ML IV SCH (21:01)
[2020-12-31] MEDS: hydrALAZINE 20 MG/ML VIAL SLOW IVP PRN (21:38)
[2021-01-01] MEDS: Metoclopramide HCl 10 MG/2 ML VIAL IVP SCH ×3 (03:13→18:23)
[2021-01-01] MEDS: Acetaminophen 650 MG/20.3 ML UDCUP PO SCH ×4 (03:17→21:46)
[2021-01-01 04:02] LABS: #Lymphocytes 0.6 thou/uL (1.20-3.40); #Monocytes 0.5 thou/uL (0.11-0.59); #Neutrophils 6.8 thou/uL (1.40-6.50); %Eosinophils 0.1 % (0.0-10.0); %Lymphocytes 7.6 % (21.0-51.0); %Monocytes 5.7 % (0.0-10.0); %Neutrophils 86.6 % (42.0-75.0); Hemoglobin 10.9 g/dL (14.0-18.0); Mean Corpuscular Hemoglobin 32.7 pg (27.0-31.0); Mean Corpuscular Volume 99.3 fL (78.0-98.0); Mean Platelet Volume 7.1 fL (7.4-10.4); Platelet Count 177 thou/uL (130-400); RBC Distribution Width 11.4 % (11.5-14.5); Red Blood Cell (RBC) Count 3.33 mill/uL (4.70-6.10); White Blood Cell (WBC) Count 7.9 thou/uL (4.8-10.8)
[2021-01-01] MEDS: hydrALAZINE 20 MG/ML VIAL SLOW IVP PRN ×2 (04:33→22:27)
[2021-01-01 04:34] LABS: Anion Gap 12 mmol/L (10-20); BUN (Urea Nitrogen) 24 mg/dL (8.4-25.7); Calc. Creatinine Clearance 109 mL/min (70-130); Calcium 8.9 mg/dL (7.8-10.44); Carbon Dioxide 26 mmol/L (23-31); Chloride 107 mmol/L (98-107); Glucose 201 mg/dL (83-110); Phosphorus 2.7 mg/dL (2.3-4.7); Potassium 3.4 mmol/L (3.5-5.1); Sodium 142 mmol/L (136-145)
[2021-01-01] MEDS: Amlodipine 5 MG TAB PO SCH (08:19)
[2021-01-01] MEDS: Bisacodyl 10 MG SUPP PR SCH (08:20)
[2021-01-01] MEDS: Amantadine HCl 100 mg Capsule PO SCH ×2 (08:20→21:46)
[2021-01-01] MEDS: Famotidine/PF 20 mg/2ml Vial SLOW IVP SCH ×2 (08:20→21:46)
[2021-01-01] MEDS: Senokot S 8.6-50 MG TAB PO SCH ×2 (08:21→21:45)
[2021-01-01] MEDS: Polyethylene Glycol 3350 17 GM Packet PO SCH (08:21)
[2021-01-01] MEDS: Sacubitril 49 MG/Valsartan 51 MG TABLET PO SCH ×2 (08:21→21:45)
[2021-01-01] MEDS: levETIRAcetam in NS 500 MG in Premix Bag 1 BAG IVPB SCH (08:49)
[2021-01-01] MEDS ORDERED: cefTRIAXone\\ROCEPHIN 2 GM in Sodium Chloride 0.9% 100 ML IVPB SCH (13:00)
[2021-01-01] MEDS: Sodium Chloride 0.9% 1,000 ML IV SCH (21:45)
[2021-01-01] MEDS: Piperacillin/Tazobactam 3.375 GM in Sodium Chloride 0.9% 100 ML IVPB SCH (22:22)
[2021-01-02] MEDS: Metoclopramide HCl 10 MG/2 ML VIAL IVP SCH ×3 (04:53→18:05)
[2021-01-02] MEDS: Acetaminophen 650 MG/20.3 ML UDCUP PO SCH ×4 (04:53→21:03)
[2021-01-02] MEDS: Piperacillin/Tazobactam 3.375 GM in Sodium Chloride 0.9% 100 ML IVPB SCH ×3 (05:51→21:03)
[2021-01-02] MEDS: Bisacodyl 10 MG SUPP PR SCH (08:30)
[2021-01-02] MEDS: Polyethylene Glycol 3350 17 GM Packet PO SCH (08:30)
[2021-01-02] MEDS: Senokot S 8.6-50 MG TAB PO SCH ×2 (08:30→20:58)
[2021-01-02] MEDS ORDERED: Potassium Phosphate 30 MMOL in Sodium Chloride 0.9% 250 ML 250 ML IVPB SCH (08:30)
[2021-01-02] MEDS: Amlodipine 5 MG TAB PO SCH (08:31)
[2021-01-02] MEDS: Saccharomyces boulardii 250 MG CAP PO SCH (08:31)
[2021-01-02] MEDS: Famotidine/PF 20 mg/2ml Vial SLOW IVP SCH ×2 (08:33→20:58)
[2021-01-02] MEDS: Amantadine HCl 100 mg Capsule PO SCH ×2 (08:33→20:57)
[2021-01-02] MEDS: Sacubitril 49 MG/Valsartan 51 MG TABLET PO SCH ×2 (08:34→20:57)
[2021-01-02 08:43] LABS: #Eosinphils 0.1 thou/uL (0.0-0.7); #Lymphocytes 0.6 thou/uL (1.20-3.40); #Monocytes 0.5 thou/uL (0.11-0.59); #Neutrophils 7.3 thou/uL (1.40-6.50); %Eosinophils 0.6 % (0.0-10.0); %Lymphocytes 7.5 % (21.0-51.0); %Monocytes 5.7 % (0.0-10.0); %Neutrophils 86.2 % (42.0-75.0); Hemoglobin 11.4 g/dL (14.0-18.0); Mean Corpuscular HGB CONC 33.6 g/dL (32.0-36.0); Mean Corpuscular Hemoglobin 33.4 pg (27.0-31.0); Mean Corpuscular Volume 99.5 fL (78.0-98.0); Mean Platelet Volume 7.6 fL (7.4-10.4); Platelet Count 177 thou/uL (130-400); RBC Distribution Width 11.3 % (11.5-14.5); White Blood Cell (WBC) Count 8.5 thou/uL (4.8-10.8)
[2021-01-02 08:48] LABS: Anion Gap 10 mmol/L (10-20); BUN (Urea Nitrogen) 30 mg/dL (8.4-25.7); Calc. Creatinine Clearance 96 mL/min (70-130); Calcium 8.8 mg/dL (7.8-10.44); Carbon Dioxide 27 mmol/L (23-31); Chloride 107 mmol/L (98-107); Glucose 330 mg/dL (83-110); Magnesium 1.9 mg/dL (1.6-2.6); Potassium 3.2 mmol/L (3.5-5.1); Sodium 141 mmol/L (136-145)
[2021-01-02] MEDS ORDERED: Furosemide 20 MG/2 ML VIAL SLOW IVP SCH ×2 (09:30→17:45)
[2021-01-02] MEDS: Sodium Chloride 0.9% 1,000 ML IV SCH (20:08)
[2021-01-03] MEDS: Metoclopramide HCl 10 MG/2 ML VIAL IVP SCH ×3 (03:59→18:33)
[2021-01-03] MEDS: Acetaminophen 650 MG/20.3 ML UDCUP PO SCH ×4 (03:59→21:43)
[2021-01-03] MEDS: hydrALAZINE 20 MG/ML VIAL SLOW IVP PRN (04:15)
[2021-01-03 04:24] LABS: Anion Gap 13 mmol/L (10-20); BUN (Urea Nitrogen) 28 mg/dL (8.4-25.7); Calc. Creatinine Clearance 94 mL/min (70-130); Calcium 8.7 mg/dL (7.8-10.44); Carbon Dioxide 28 mmol/L (23-31); Chloride 104 mmol/L (98-107); Glucose 348 mg/dL (83-110); Magnesium 1.7 mg/dL (1.6-2.6); Phosphorus 2.4 mg/dL (2.3-4.7); Sodium 142 mmol/L (136-145)
[2021-01-03 04:37] LABS: Potassium 2.9 mmol/L (3.5-5.1)
[2021-01-03] MEDS ORDERED: Magnesium Sulfate 3 GM in Sodium Chloride 0.9% 250 ML 250 ML IVPB SCH (05:30)
[2021-01-03] MEDS: Piperacillin/Tazobactam 3.375 GM in Sodium Chloride 0.9% 100 ML IVPB SCH ×3 (05:56→21:09)
[2021-01-03] MEDS ORDERED: Potassium Phosphate 30 MMOL in Sodium Chloride 0.9% 250 ML 250 ML IVPB SCH (06:00)
[2021-01-03] MEDS ORDERED: Lantus 1000 UNITS/10 ML VIAL SC SCH (09:00)
[2021-01-03] MEDS ORDERED: Carvedilol 3.125 MG TAB PO SCH ×2 (09:30→21:00)
[2021-01-03] MEDS: Amlodipine 5 MG TAB PO SCH (09:47)
[2021-01-03] MEDS: Famotidine/PF 20 mg/2ml Vial SLOW IVP SCH ×2 (09:47→21:10)
[2021-01-03] MEDS: Bisacodyl 10 MG SUPP PR SCH (09:47)
[2021-01-03] MEDS: Amantadine HCl 100 mg Capsule PO SCH ×2 (09:47→21:12)
[2021-01-03] MEDS: Polyethylene Glycol 3350 17 GM Packet PO SCH (09:48)
[2021-01-03] MEDS: Senokot S 8.6-50 MG TAB PO SCH ×2 (09:48→20:13)
[2021-01-03] MEDS: Saccharomyces boulardii 250 MG CAP PO SCH (09:48)
[2021-01-03] MEDS: Sacubitril 49 MG/Valsartan 51 MG TABLET PO SCH ×2 (09:48→21:12)
[2021-01-03] MEDS: Insulin Regular 300 UNITS/3 ML VIAL SC PRN ×2 (10:05→15:45)
[2021-01-03 10:34] LABS: Troponin I 0.051 ng/mL (< 0.028)
[2021-01-03 13:38] LABS: Actual Bicarbonate (HCO3a) 28.7 mEq/L (22-28); Base Excess (BEa) 4.8 mEq/L (-2.0 to +3.0); CO2 Tension 39.7 mmHg (35.0-45.0); Calcium, Ionized (arterial) 1.12 mmol/L (1.12-1.30); Carboxyhemoglobin (COHb) 1.2 gm% (0.0-3.0); O2 Tension (PaO2), arterial 64.6 mmHg (> 70.0); Potassium - ABG Lab 3.26 mmol/L (3.70-5.30); pH, Arterial 7.48 (7.35-7.45)
[2021-01-03 13:39] LABS: ALV-art Gradient 113.935 mmHg (0-20); Puncture Site LRA
[2021-01-03] MEDS ORDERED: Insulin Regular 300 UNITS/3 ML VIAL SC SCH (15:15)
[2021-01-03] MEDS ORDERED: levETIRAcetam in NS 1,000 MG in Premix Bag 1 BAG IVPB SCH (16:23)
[2021-01-03] MEDS: Spironolactone 25 MG TAB PO SCH (16:47)
[2021-01-03 16:52] LABS: Bacteria/HPF None Seen HPF (None Seen); Bilirubin Negative (Negative); Blood, Urine Negative (Negative); Clarity Clear (Clear); Glucose, Urine (Dipstick) Greater than 1000 mg/dL (Negative); Ketone, Urine Negative (Negative); Leukocyte Negative Leu/uL (Negative); Nitrite Negative (Negative); Protein, Urine (Dipstick) 20 mg/dL (Neg-Trace); RBC/HPF 0-3 HPF (0-3); Specific Gravity, Urine 1.041 (1.002-1.036); Squamous Epithelial None Seen HPF (0-3); Urobilinogen 3 mg/dL (Less than 2); WBC/HPF 0-3 HPF (0-3); pH, Urine 5.5 (5.0-9.0)
[2021-01-03 16:53] LABS: Urine Culture Reflex No No
[2021-01-03] MEDS ORDERED: Insulin Regular 300 UNITS/3 ML VIAL IVP SCH (17:15)
[2021-01-03] MEDS: Sodium Chloride 0.9% 1,000 ML IV SCH (20:11)
[2021-01-03] MEDS ORDERED: Furosemide 20 MG/2 ML VIAL SLOW IVP SCH (20:45)
[2021-01-03] MEDS: Carvedilol 3.125 MG TAB PO SCH (21:09)
[2021-01-03] MEDS: Lantus 1000 UNITS/10 ML VIAL SC SCH (21:39)
[2021-01-04] MEDS: Metoclopramide HCl 10 MG/2 ML VIAL IVP SCH ×4 (03:44→20:25)
[2021-01-04] MEDS: Acetaminophen 650 MG/20.3 ML UDCUP PO SCH ×4 (03:47→21:57)
[2021-01-04 03:50] LABS: #Eosinphils 0.1 thou/uL (0.0-0.7); #Lymphocytes 0.9 thou/uL (1.20-3.40); #Monocytes 0.4 thou/uL (0.11-0.59); #Neutrophils 10.9 thou/uL (1.40-6.50); %Basophils 0.2 % (0.0-1.0); %Eosinophils 0.7 % (0.0-10.0); %Lymphocytes 7.1 % (21.0-51.0); %Monocytes 3.4 % (0.0-10.0); %Neutrophils 88.7 % (42.0-75.0); Hemoglobin 12.4 g/dL (14.0-18.0); Mean Corpuscular HGB CONC 32.8 g/dL (32.0-36.0); Mean Corpuscular Hemoglobin 32.9 pg (27.0-31.0); Mean Platelet Volume 8.1 fL (7.4-10.4); Platelet Count 195 thou/uL (130-400); RBC Distribution Width 11.5 % (11.5-14.5); Red Blood Cell (RBC) Count 3.78 mill/uL (4.70-6.10); White Blood Cell (WBC) Count 12.3 thou/uL (4.8-10.8)
[2021-01-04] MEDS ORDERED: levETIRAcetam in NS 500 MG in Premix Bag 1 BAG IVPB SCH (04:00)
[2021-01-04 04:01] LABS: Anion Gap 14 mmol/L (10-20); BUN (Urea Nitrogen) 34 mg/dL (8.4-25.7); Calc. Creatinine Clearance 102 mL/min (70-130); Carbon Dioxide 27 mmol/L (23-31); Chloride 110 mmol/L (98-107); Glucose 145 mg/dL (83-110); Magnesium 2.1 mg/dL (1.6-2.6); Phosphorus 2.5 mg/dL (2.3-4.7); Sodium 148 mmol/L (136-145)
[2021-01-04 04:06] LABS: Potassium 2.7 mmol/L (3.5-5.1)
[2021-01-04] MEDS: Piperacillin/Tazobactam 3.375 GM in Sodium Chloride 0.9% 100 ML IVPB SCH ×3 (05:57→22:16)
[2021-01-04] MEDS: Potassium Chloride 20 MEQ in Premix Bag 1 BAG IVPB SCH ×2 (05:57→07:43)
[2021-01-04] MEDS ORDERED: Potassium Phosphate 30 MMOL in Sodium Chloride 0.9% 250 ML 250 ML IVPB SCH ×2 (07:15→14:00)
[2021-01-04] MEDS: Saccharomyces boulardii 250 MG CAP PO SCH (07:44)
[2021-01-04] MEDS: Spironolactone 25 MG TAB PO SCH ×2 (07:44→17:05)
[2021-01-04] MEDS: Famotidine/PF 20 mg/2ml Vial SLOW IVP SCH ×2 (07:44→20:21)
[2021-01-04] MEDS: Amlodipine 5 MG TAB PO SCH (07:44)
[2021-01-04] MEDS: Carvedilol 3.125 MG TAB PO SCH ×2 (07:44→20:20)
[2021-01-04] MEDS: Bisacodyl 10 MG SUPP PR SCH (07:45)
[2021-01-04] MEDS: Polyethylene Glycol 3350 17 GM Packet PO SCH (07:45)
[2021-01-04] MEDS: Sacubitril 49 MG/Valsartan 51 MG TABLET PO SCH ×2 (07:46→20:20)
[2021-01-04] MEDS: Senokot S 8.6-50 MG TAB PO SCH ×2 (07:46→20:17)
[2021-01-04] MEDS: Amantadine HCl 100 mg Capsule PO SCH ×2 (07:46→20:20)
[2021-01-04] MEDS ORDERED: CEFAZOLIN 2 GM, Admixture Fee 1 EACH in Sodium Chloride 0.9% 100 ML IVPB SCH (08:00)
[2021-01-04] MEDS: Insulin Regular 300 UNITS/3 ML VIAL SC PRN ×3 (10:45→21:55)
[2021-01-04] MEDS: Lantus 1000 UNITS/10 ML VIAL SC SCH ×2 (11:07→21:54)
[2021-01-04] MEDS ORDERED: Insulin Regular 300 UNITS/3 ML VIAL SC SCH (17:30)
[2021-01-04 19:11] LABS: Anion Gap 12 mmol/L (10-20); BUN (Urea Nitrogen) 35 mg/dL (8.4-25.7); Calc. Creatinine Clearance 92 mL/min (70-130); Carbon Dioxide 30 mmol/L (23-31); Chloride 109 mmol/L (98-107); Glucose 329 mg/dL (83-110); Phosphorus 3.8 mg/dL (2.3-4.7); Potassium 3.3 mmol/L (3.5-5.1); Sodium 148 mmol/L (136-145)
[2021-01-04] MEDS ORDERED: Potassium Chloride 40 MEQ in Premix Bag 1 BAG IVPB SCH (20:00)
[2021-01-04] MEDS: hydrALAZINE 20 MG/ML VIAL SLOW IVP PRN (23:08)
[2021-01-05] MEDS: Metoclopramide HCl 10 MG/2 ML VIAL IVP SCH ×3 (03:00→20:28)
[2021-01-05] MEDS: Acetaminophen 650 MG/20.3 ML UDCUP PO SCH ×4 (03:00→22:42)
[2021-01-05] MEDS: Insulin Regular 300 UNITS/3 ML VIAL SC PRN (05:03)
[2021-01-05 05:44] LABS: #Eosinphils 0.1 thou/uL (0.0-0.7); #Lymphocytes 0.8 thou/uL (1.20-3.40); #Monocytes 0.3 thou/uL (0.11-0.59); #Neutrophils 6.1 thou/uL (1.40-6.50); %Basophils 0.5 % (0.0-1.0); %Eosinophils 0.9 % (0.0-10.0); %Lymphocytes 10.9 % (21.0-51.0); %Monocytes 4.2 % (0.0-10.0); %Neutrophils 83.6 % (42.0-75.0); Hemoglobin 12.9 g/dL (14.0-18.0); Mean Corpuscular HGB CONC 32.5 g/dL (32.0-36.0); Mean Corpuscular Hemoglobin 32.8 pg (27.0-31.0); Mean Platelet Volume 7.9 fL (7.4-10.4); Platelet Count 205 thou/uL (130-400); RBC Distribution Width 11.8 % (11.5-14.5); Red Blood Cell (RBC) Count 3.92 mill/uL (4.70-6.10); White Blood Cell (WBC) Count 7.3 thou/uL (4.8-10.8)
[2021-01-05] MEDS: hydrALAZINE 20 MG/ML VIAL SLOW IVP PRN ×2 (06:06→10:41)
[2021-01-05] MEDS: Piperacillin/Tazobactam 3.375 GM in Sodium Chloride 0.9% 100 ML IVPB SCH ×3 (06:07→22:41)
[2021-01-05 06:19] LABS: Anion Gap 15 mmol/L (10-20); BUN (Urea Nitrogen) 26 mg/dL (8.4-25.7); Calc. Creatinine Clearance 98 mL/min (70-130); Calcium 8.8 mg/dL (7.8-10.44); Carbon Dioxide 23 mmol/L (23-31); Chloride 112 mmol/L (98-107); Glucose 224 mg/dL (83-110); Magnesium 1.9 mg/dL (1.6-2.6); Phosphorus 2.4 mg/dL (2.3-4.7); Potassium 3.6 mmol/L (3.5-5.1); Sodium 146 mmol/L (136-145)
[2021-01-05] MEDS ORDERED: Dextrose 5% in Water 1,000 ML IV PRN (07:41)
[2021-01-05] MEDS ORDERED: Dextrose 50% Abboject 50 ML SYRINGE SLOW IVP PRN (07:41)
[2021-01-05] MEDS ORDERED: Thrombin 5000 UNITS/5 ML VIAL ONE (07:48)
[2021-01-05] MEDS ORDERED: Neomycin-Polymyxin 1 ML AMP ONE (07:48)
[2021-01-05] MEDS ORDERED: Lidocaine 0.5%/Epinephrine 1:200,000 50 ml Vial ONE (07:48)
[2021-01-05] MEDS ORDERED: Fentanyl 100 MCG/2 ML VIAL ONE (08:01)
[2021-01-05] MEDS ORDERED: Rocuronium Bromide 10 MG/ML (10ML VIAL) ONE (08:36)
[2021-01-05] MEDS ORDERED: PROPOFOL 200 MG/20 ML VIAL ONE (08:36)
[2021-01-05] MEDS ORDERED: Lidocaine 1% PF 5 ML VIAL ONE (08:36)
[2021-01-05] MEDS ORDERED: PHENYLEPHRINE-NS 100 MCG/ML 10 ML SYRINGE ONE (08:36)
[2021-01-05] MEDS ORDERED: SUGAMMADEX SODIUM 200 MG/2 ML VIAL ONE (09:43)
[2021-01-05] MEDS ORDERED: hydrALAZINE 20 MG/ML VIAL ONE (10:36)
[2021-01-05] MEDS: Spironolactone 25 MG TAB PO SCH ×2 (11:13→16:53)
[2021-01-05] MEDS: Amantadine HCl 100 mg Capsule PO SCH ×2 (11:13→20:29)
[2021-01-05] MEDS: Amlodipine 5 MG TAB PO SCH (11:13)
[2021-01-05] MEDS: Bisacodyl 10 MG SUPP PR SCH (11:14)
[2021-01-05] MEDS: Carvedilol 3.125 MG TAB PO SCH ×2 (11:14→20:28)
[2021-01-05] MEDS: Lantus 1000 UNITS/10 ML VIAL SC SCH ×2 (11:15→21:11)
[2021-01-05] MEDS: Sacubitril 49 MG/Valsartan 51 MG TABLET PO SCH ×2 (11:17→20:29)
[2021-01-05] MEDS: Senokot S 8.6-50 MG TAB PO SCH ×2 (11:17→20:30)
[2021-01-05] MEDS: Saccharomyces boulardii 250 MG CAP PO SCH (11:17)
[2021-01-05] MEDS: Polyethylene Glycol 3350 17 GM Packet PO SCH (11:17)
[2021-01-05] MEDS: Famotidine/PF 20 mg/2ml Vial SLOW IVP SCH ×2 (11:52→20:29)
[2021-01-05] MEDS ORDERED: Carvedilol 6.25 MG TAB PO SCH (14:12)
[2021-01-05] MEDS ORDERED: Sacubitril 49 MG/Valsartan 51 MG TABLET PO SCH (14:15)
[2021-01-05] MEDS: HumaLOG 300 UNITS/3 ML VIAL SC PRN ×2 (16:54→23:04)
[2021-01-06] MEDS: Metoclopramide HCl 10 MG/2 ML VIAL IVP SCH ×3 (02:52→19:20)
[2021-01-06] MEDS: hydrALAZINE 20 MG/ML VIAL SLOW IVP PRN (02:57)
[2021-01-06] MEDS: Acetaminophen 650 MG/20.3 ML UDCUP PO SCH ×4 (03:04→22:22)
[2021-01-06 04:35] LABS: #Eosinphils 0.1 thou/uL (0.0-0.7); #Monocytes 0.4 thou/uL (0.11-0.59); #Neutrophils 6.8 thou/uL (1.40-6.50); %Basophils 0.1 % (0.0-1.0); %Eosinophils 1.1 % (0.0-10.0); %Lymphocytes 11.7 % (21.0-51.0); %Monocytes 4.9 % (0.0-10.0); %Neutrophils 82.2 % (42.0-75.0); Hemoglobin 12.4 g/dL (14.0-18.0); Mean Corpuscular HGB CONC 32.4 g/dL (32.0-36.0); Mean Corpuscular Hemoglobin 33.1 pg (27.0-31.0); Mean Platelet Volume 7.9 fL (7.4-10.4); Platelet Count 227 thou/uL (130-400); RBC Distribution Width 11.8 % (11.5-14.5); Red Blood Cell (RBC) Count 3.73 mill/uL (4.70-6.10); White Blood Cell (WBC) Count 8.2 thou/uL (4.8-10.8)
[2021-01-06 04:53] LABS: Anion Gap 12 mmol/L (10-20); BUN (Urea Nitrogen) 24 mg/dL (8.4-25.7); Calc. Creatinine Clearance 110 mL/min (70-130); Calcium 9.1 mg/dL (7.8-10.44); Carbon Dioxide 27 mmol/L (23-31); Chloride 112 mmol/L (98-107); Glucose 140 mg/dL (83-110); Magnesium 1.8 mg/dL (1.6-2.6); Phosphorus 2.7 mg/dL (2.3-4.7); Potassium 3.2 mmol/L (3.5-5.1); Sodium 148 mmol/L (136-145)
[2021-01-06] MEDS: Piperacillin/Tazobactam 3.375 GM in Sodium Chloride 0.9% 100 ML IVPB SCH ×3 (05:07→22:14)
[2021-01-06] MEDS ORDERED: Magnesium Sulfate 3 GM in Sodium Chloride 0.9% 100 ML IV SCH (07:15)
[2021-01-06] MEDS ORDERED: Potassium Phosphate 30 MMOL, Magnesium Sulfate 3 GM in Sodium Chloride 0.9% 250 ML IVPB SCH (08:00)
[2021-01-06] MEDS ORDERED: Enoxaparin Sodium 40 MG/0.4 ML SYRINGE SC SCH (09:00)
[2021-01-06] MEDS: Amlodipine 5 MG TAB PO SCH (10:24)
[2021-01-06] MEDS: Carvedilol 3.125 MG TAB PO SCH ×2 (10:24→20:57)
[2021-01-06] MEDS: Famotidine/PF 20 mg/2ml Vial SLOW IVP SCH ×2 (10:24→20:55)
[2021-01-06] MEDS: Spironolactone 25 MG TAB PO SCH ×2 (10:25→16:58)
[2021-01-06] MEDS: Saccharomyces boulardii 250 MG CAP PO SCH (10:25)
[2021-01-06] MEDS: Amantadine HCl 100 mg Capsule PO SCH ×2 (10:27→20:56)
[2021-01-06] MEDS: Sacubitril 49 MG/Valsartan 51 MG TABLET PO SCH ×2 (10:28→20:56)
[2021-01-06] MEDS: Ondansetron PF 4 MG/2 ML Vial IVP PRN (10:53)
[2021-01-06] MEDS: Lantus 1000 UNITS/10 ML VIAL SC SCH ×2 (13:30→20:58)
[2021-01-06] MEDS: Bisacodyl 10 MG SUPP PR SCH (13:30)
[2021-01-06] MEDS: Polyethylene Glycol 3350 17 GM Packet PO SCH (13:31)
[2021-01-06] MEDS: Senokot S 8.6-50 MG TAB PO SCH ×2 (13:31→21:01)
[2021-01-06] MEDS: HumaLOG 300 UNITS/3 ML VIAL SC PRN ×2 (16:58→22:49)
[2021-01-07] MEDS ORDERED: levETIRAcetam in NS 500 MG in Premix Bag 1 BAG IVPB SCH (03:30)
[2021-01-07 03:51] LABS: #Eosinphils 0.1 thou/uL (0.0-0.7); #Lymphocytes 0.8 thou/uL (1.20-3.40); #Monocytes 0.4 thou/uL (0.11-0.59); #Neutrophils 9.5 thou/uL (1.40-6.50); %Eosinophils 0.5 % (0.0-10.0); %Lymphocytes 7.6 % (21.0-51.0); %Monocytes 3.7 % (0.0-10.0); %Neutrophils 88.1 % (42.0-75.0); Hemoglobin 12.4 g/dL (14.0-18.0); Mean Corpuscular HGB CONC 35.6 g/dL (32.0-36.0); Mean Corpuscular Hemoglobin 35.6 pg (27.0-31.0); Mean Platelet Volume 8.1 fL (7.4-10.4); Platelet Count 214 thou/uL (130-400); RBC Distribution Width 11.7 % (11.5-14.5); Red Blood Cell (RBC) Count 3.49 mill/uL (4.70-6.10); White Blood Cell (WBC) Count 10.8 thou/uL (4.8-10.8)
[2021-01-07 03:55] LABS: Bacteria/HPF None Seen HPF (None Seen); Bilirubin Negative (Negative); Blood, Urine Trace (Negative); Clarity Clear (Clear); Glucose, Urine (Dipstick) Normal (Negative); Ketone, Urine Negative (Negative); Leukocyte 25 Leu/uL (Negative); Nitrite Negative (Negative); Protein, Urine (Dipstick) 30 mg/dL (Neg-Trace); RBC/HPF 0-3 HPF (0-3); Specific Gravity, Urine 1.037 (1.002-1.036); Squamous Epithelial 0-3 HPF (0-3); Urobilinogen Normal mg/dL (Less than 2); pH, Urine 5.5 (5.0-9.0)
[2021-01-07 03:57] LABS: Urine Culture Reflex Yes Yes
[2021-01-07 04:17] LABS: Anion Gap 13 mmol/L (10-20); BUN (Urea Nitrogen) 26 mg/dL (8.4-25.7); Calc. Creatinine Clearance 96 mL/min (70-130); Calcium 8.8 mg/dL (7.8-10.44); Carbon Dioxide 27 mmol/L (23-31); Chloride 110 mmol/L (98-107); Glucose 141 mg/dL (83-110); Magnesium 2.3 mg/dL (1.6-2.6); Phosphorus 3.4 mg/dL (2.3-4.7); Potassium 3.6 mmol/L (3.5-5.1); Sodium 146 mmol/L (136-145)
[2021-01-07] MEDS: Metoclopramide HCl 10 MG/2 ML VIAL IVP SCH ×3 (04:39→20:54)
[2021-01-07] MEDS: Acetaminophen 650 MG/20.3 ML UDCUP PO SCH ×4 (04:40→22:10)
[2021-01-07] MEDS: Piperacillin/Tazobactam 3.375 GM in Sodium Chloride 0.9% 100 ML IVPB SCH ×3 (05:54→22:11)
[2021-01-07] MEDS: Saccharomyces boulardii 250 MG CAP PO SCH (10:45)
[2021-01-07] MEDS: Bisacodyl 10 MG SUPP PR SCH (10:45)
[2021-01-07] MEDS: Amlodipine 5 MG TAB PO SCH (10:50)
[2021-01-07] MEDS: Amantadine HCl 100 mg Capsule PO SCH ×2 (10:50→20:54)
[2021-01-07] MEDS: Polyethylene Glycol 3350 17 GM Packet PO SCH (10:50)
[2021-01-07] MEDS: Famotidine/PF 20 mg/2ml Vial SLOW IVP SCH ×2 (10:50→20:54)
[2021-01-07] MEDS: Lantus 1000 UNITS/10 ML VIAL SC SCH ×2 (10:50→21:04)
[2021-01-07] MEDS: Sacubitril 49 MG/Valsartan 51 MG TABLET PO SCH ×2 (10:50→20:54)
[2021-01-07] MEDS: Senokot S 8.6-50 MG TAB PO SCH ×2 (10:50→20:53)
[2021-01-07] MEDS: Spironolactone 25 MG TAB PO SCH ×2 (10:50→16:46)
[2021-01-07] MEDS: levETIRAcetam in NS 500 MG in Premix Bag 1 BAG IVPB SCH ×3 (10:50→20:53)
[2021-01-07] MEDS: Carvedilol 3.125 MG TAB PO SCH ×2 (10:50→20:54)
[2021-01-07] MEDS: HumaLOG 300 UNITS/3 ML VIAL SC PRN ×3 (13:13→21:04)
[2021-01-07 20:57] LABS: SARS-CoV-2 PCR by NAA Not Detected (NotDetected)
[2021-01-08] MEDS: Metoclopramide HCl 10 MG/2 ML VIAL IVP SCH ×3 (03:52→18:20)
[2021-01-08] MEDS: Acetaminophen 650 MG/20.3 ML UDCUP PO SCH ×4 (04:08→21:38)
[2021-01-08] MEDS: HumaLOG 300 UNITS/3 ML VIAL SC PRN ×4 (04:09→21:39)
[2021-01-08] MEDS: Piperacillin/Tazobactam 3.375 GM in Sodium Chloride 0.9% 100 ML IVPB SCH ×3 (05:10→21:38)
[2021-01-08] MEDS: Sacubitril 49 MG/Valsartan 51 MG TABLET PO SCH ×2 (09:14→21:42)
[2021-01-08] MEDS: Carvedilol 3.125 MG TAB PO SCH ×2 (09:15→21:42)
[2021-01-08] MEDS: Spironolactone 25 MG TAB PO SCH ×2 (09:15→17:02)
[2021-01-08] MEDS: Amlodipine 5 MG TAB PO SCH (09:15)
[2021-01-08] MEDS: Saccharomyces boulardii 250 MG CAP PO SCH (09:15)
[2021-01-08] MEDS: Amantadine HCl 100 mg Capsule PO SCH ×2 (09:16→21:42)
[2021-01-08] MEDS: Senokot S 8.6-50 MG TAB PO SCH ×2 (09:17→21:43)
[2021-01-08] MEDS: Famotidine/PF 20 mg/2ml Vial SLOW IVP SCH ×2 (09:17→21:43)
[2021-01-08] MEDS: Bisacodyl 10 MG SUPP PR SCH (09:17)
[2021-01-08] MEDS: Polyethylene Glycol 3350 17 GM Packet PO SCH (09:17)
[2021-01-08] MEDS: Lantus 1000 UNITS/10 ML VIAL SC SCH ×2 (09:20→21:40)
[2021-01-08] MEDS: levETIRAcetam in NS 500 MG in Premix Bag 1 BAG IVPB SCH ×2 (11:40→21:38)
[2021-01-08] MEDS ORDERED: Acetaminophen 650 MG/20.3 ML UDCUP ONE (16:57)
[2021-01-08] MEDS ORDERED: levETIRAcetam 500 MG/100 ML PREMIX BAG ONE (21:15)
[2021-01-09] MEDS: Acetaminophen 650 MG/20.3 ML UDCUP PO SCH ×4 (04:22→21:19)
[2021-01-09] MEDS: Metoclopramide HCl 10 MG/2 ML VIAL IVP SCH (04:22)
[2021-01-09] MEDS: HumaLOG 300 UNITS/3 ML VIAL SC PRN ×2 (04:26→10:08)
[2021-01-09] MEDS: Piperacillin/Tazobactam 3.375 GM in Sodium Chloride 0.9% 100 ML IVPB SCH ×3 (06:47→21:20)
[2021-01-09 07:46] LABS: Anion Gap 9 mmol/L (10-20); BUN (Urea Nitrogen) 22 mg/dL (8.4-25.7); Calc. Creatinine Clearance 103 mL/min (70-130); Calcium 8.7 mg/dL (7.8-10.44); Carbon Dioxide 30 mmol/L (23-31); Chloride 111 mmol/L (98-107); Glucose 170 mg/dL (83-110); Magnesium 1.9 mg/dL (1.6-2.6); Phosphorus 2.3 mg/dL (2.3-4.7); Potassium 3.6 mmol/L (3.5-5.1); Sodium 146 mmol/L (136-145)
[2021-01-09] MEDS ORDERED: Potassium Phosphate 30 MMOL, Magnesium Sulfate 3 GM in Sodium Chloride 0.9% 250 ML 250 ML IVPB SCH (08:45)
[2021-01-09] MEDS: Famotidine/PF 20 mg/2ml Vial SLOW IVP SCH ×2 (08:49→20:20)
[2021-01-09] MEDS: Saccharomyces boulardii 250 MG CAP PO SCH (08:50)
[2021-01-09] MEDS: Spironolactone 25 MG TAB PO SCH ×2 (08:50→18:00)
[2021-01-09] MEDS: Polyethylene Glycol 3350 17 GM Packet PO SCH (08:50)
[2021-01-09] MEDS: Senokot S 8.6-50 MG TAB PO SCH ×2 (08:50→20:20)
[2021-01-09] MEDS: Amantadine HCl 100 mg Capsule PO SCH ×2 (08:58→20:20)
[2021-01-09] MEDS: Carvedilol 6.25 MG TAB PO SCH ×2 (08:58→20:19)
[2021-01-09] MEDS: Sacubitril 49 MG/Valsartan 51 MG TABLET PO SCH ×2 (08:58→20:20)
[2021-01-09] MEDS: Lantus 1000 UNITS/10 ML VIAL SC SCH ×2 (08:59→21:20)
[2021-01-09] MEDS ORDERED: Magnesium 2 GM/50 ML 1 GM in Premix Bag 1 BAG IVPB SCH (09:30)
[2021-01-09] MEDS ORDERED: Lidocaine 1% w/Epinephrine 1:100K 20 ML VIAL ONE (10:53)
[2021-01-09] MEDS ORDERED: Rocuronium Bromide 10 MG/ML (10ML VIAL) ONE (11:08)
[2021-01-09] MEDS ORDERED: PROPOFOL 0 ML ONE ×2 (11:09→12:56)
[2021-01-09] MEDS: levETIRAcetam in NS 500 MG in Premix Bag 1 BAG IVPB SCH ×2 (11:34→20:20)
[2021-01-09] MEDS ORDERED: Rocuronium Bromide 50 MG/5 ML VIAL IVP SCH (12:00)
[2021-01-09] MEDS ORDERED: Fentanyl 100 MCG/2 ML VIAL ONE (12:55)
[2021-01-09] MEDS ORDERED: Midazolam HCl 2 mg/2 ml Vial ONE (12:55)
[2021-01-09] MEDS ORDERED: Sterile Water 10 ML ONE (12:56)
[2021-01-09] MEDS ORDERED: Vecuronium 10 MG VIAL ONE (12:56)
[2021-01-09] MEDS ORDERED: Vecuronium 10 MG VIAL IV SCH (13:25)
[2021-01-09] MEDS ORDERED: Midazolam HCl 2 mg/2 ml Vial IVP SCH (13:25)
[2021-01-09] MEDS ORDERED: Fentanyl 100 MCG/2 ML VIAL SLOW IVP SCH (13:25)
[2021-01-10 04:35] LABS: #Eosinphils 0.1 thou/uL (0.0-0.7); #Lymphocytes 0.7 thou/uL (1.20-3.40); #Monocytes 0.3 thou/uL (0.11-0.59); #Neutrophils 4.5 thou/uL (1.40-6.50); %Basophils 0.9 % (0.0-1.0); %Eosinophils 0.9 % (0.0-10.0); %Lymphocytes 11.7 % (21.0-51.0); %Monocytes 5.6 % (0.0-10.0); Hemoglobin 10.4 g/dL (14.0-18.0); Mean Corpuscular HGB CONC 32.2 g/dL (32.0-36.0); Mean Corpuscular Hemoglobin 32.3 pg (27.0-31.0); Mean Platelet Volume 8.2 fL (7.4-10.4); Platelet Count 167 thou/uL (130-400); RBC Distribution Width 11.5 % (11.5-14.5); Red Blood Cell (RBC) Count 3.21 mill/uL (4.70-6.10); White Blood Cell (WBC) Count 5.5 thou/uL (4.8-10.8)
[2021-01-10 04:56] LABS: Anion Gap 9 mmol/L (10-20); BUN (Urea Nitrogen) 19 mg/dL (8.4-25.7); Calc. Creatinine Clearance 103 mL/min (70-130); Calcium 8.1 mg/dL (7.8-10.44); Carbon Dioxide 29 mmol/L (23-31); Chloride 109 mmol/L (98-107); Glucose 127 mg/dL (83-110); Phosphorus 2.4 mg/dL (2.3-4.7); Potassium 3.3 mmol/L (3.5-5.1); Sodium 144 mmol/L (136-145)
[2021-01-10] MEDS: Acetaminophen 650 MG/20.3 ML UDCUP PO SCH ×4 (05:00→21:18)
[2021-01-10] MEDS: Piperacillin/Tazobactam 3.375 GM in Sodium Chloride 0.9% 100 ML IVPB SCH ×3 (05:21→21:18)
[2021-01-10] MEDS ORDERED: Polyethylene Glycol 3350 17 GM Packet PO PRN (08:37)
[2021-01-10] MEDS ORDERED: Senokot S 8.6-50 MG TAB PO PRN (08:38)
[2021-01-10] MEDS: Spironolactone 25 MG TAB PO SCH ×2 (08:53→17:25)
[2021-01-10] MEDS: Amantadine HCl 100 mg Capsule PO SCH ×2 (09:04→21:19)
[2021-01-10] MEDS: Carvedilol 6.25 MG TAB PO SCH ×2 (09:04→21:18)
[2021-01-10] MEDS: Saccharomyces boulardii 250 MG CAP PO SCH (09:05)
[2021-01-10] MEDS: Sacubitril 49 MG/Valsartan 51 MG TABLET PO SCH ×2 (09:06→21:18)
[2021-01-10] MEDS: Lantus 1000 UNITS/10 ML VIAL SC SCH ×2 (09:06→21:19)
[2021-01-10] MEDS: levETIRAcetam in NS 500 MG in Premix Bag 1 BAG IVPB SCH ×2 (09:23→20:45)
[2021-01-10] MEDS: Famotidine 20 MG TAB PO SCH ×2 (09:23→21:19)
[2021-01-10] MEDS: HumaLOG 300 UNITS/3 ML VIAL SC PRN (17:21)
[2021-01-11 04:52] LABS: Anion Gap 12 mmol/L (10-20); BUN (Urea Nitrogen) 24 mg/dL (8.4-25.7); Calc. Creatinine Clearance 98 mL/min (70-130); Calcium 8.7 mg/dL (7.8-10.44); Carbon Dioxide 22 mmol/L (23-31); Chloride 108 mmol/L (98-107); Glucose 198 mg/dL (83-110); Magnesium 1.9 mg/dL (1.6-2.6); Phosphorus 2.5 mg/dL (2.3-4.7); Sodium 138 mmol/L (136-145)
[2021-01-11] MEDS: Acetaminophen 650 MG/20.3 ML UDCUP PO SCH ×4 (04:58→22:47)
[2021-01-11] MEDS: HumaLOG 300 UNITS/3 ML VIAL SC PRN ×3 (05:02→16:29)
[2021-01-11] MEDS: Piperacillin/Tazobactam 3.375 GM in Sodium Chloride 0.9% 100 ML IVPB SCH ×3 (05:02→22:17)
[2021-01-11 07:58] LABS: #Eosinphils 0.1 thou/uL (0.0-0.7); #Lymphocytes 0.7 thou/uL (1.20-3.40); #Monocytes 0.4 thou/uL (0.11-0.59); #Neutrophils 4.3 thou/uL (1.40-6.50); %Eosinophils 1.1 % (0.0-10.0); %Lymphocytes 12.2 % (21.0-51.0); %Neutrophils 79.7 % (42.0-75.0); Hemoglobin 10.7 g/dL (14.0-18.0); Mean Corpuscular HGB CONC 32.2 g/dL (32.0-36.0); Mean Corpuscular Hemoglobin 32.3 pg (27.0-31.0); Mean Platelet Volume 8.3 fL (7.4-10.4); Platelet Count 150 thou/uL (130-400); RBC Distribution Width 11.5 % (11.5-14.5); Red Blood Cell (RBC) Count 3.32 mill/uL (4.70-6.10); White Blood Cell (WBC) Count 5.4 thou/uL (4.8-10.8)
[2021-01-11] MEDS ORDERED: Magnesium 2 GM/50 ML 2 GM in Premix Bag 1 BAG IVPB SCH (09:00)
[2021-01-11] MEDS: Lantus 1000 UNITS/10 ML VIAL SC SCH ×2 (09:50→22:21)
[2021-01-11] MEDS: Carvedilol 6.25 MG TAB PO SCH ×2 (10:04→22:16)
[2021-01-11] MEDS: Spironolactone 25 MG TAB PO SCH ×2 (10:04→16:33)
[2021-01-11] MEDS: Sacubitril 49 MG/Valsartan 51 MG TABLET PO SCH ×2 (10:04→22:16)
[2021-01-11] MEDS: Amantadine HCl 100 mg Capsule PO SCH ×2 (10:05→22:16)
[2021-01-11] MEDS: Famotidine 20 MG TAB PO SCH ×2 (10:06→22:16)
[2021-01-11] MEDS: Saccharomyces boulardii 250 MG CAP PO SCH (10:06)
[2021-01-11] MEDS: levETIRAcetam in NS 500 MG in Premix Bag 1 BAG IVPB SCH ×2 (10:45→23:05)
[2021-01-12] MEDS: Acetaminophen 650 MG/20.3 ML UDCUP PO SCH ×3 (04:56→17:53)
[2021-01-12] MEDS: Sacubitril 49 MG/Valsartan 51 MG TABLET PO SCH (09:47)
[2021-01-12] MEDS: levETIRAcetam in NS 500 MG in Premix Bag 1 BAG IVPB SCH (09:47)
[2021-01-12] MEDS: Carvedilol 6.25 MG TAB PO SCH (09:48)
[2021-01-12] MEDS: Famotidine 20 MG TAB PO SCH (09:48)
[2021-01-12] MEDS: Spironolactone 25 MG TAB PO SCH ×2 (09:48→17:53)
[2021-01-12] MEDS: Amantadine HCl 100 mg Capsule PO SCH (09:52)
[2021-01-12] MEDS: Lantus 1000 UNITS/10 ML VIAL SC SCH (09:53)
[2021-01-12 10:14] VITALS: BP 146/54
[2021-01-12] MEDS ORDERED: Warfarin Sodium 2.5 MG TAB PO SCH (12:45)
[2021-01-12 14:06] VITALS: BMI 21.0
[2021-01-12 19:55] VITALS: TEMP 97.7
[2021-01-12] MEDS ORDERED: Enoxaparin Sodium 40 MG/0.4 ML SYRINGE SC SCH ×2 (21:00)
== END 2021-01-12 20:15 | DRG 3 ==
LOC: ERS 19:34 → CCU 20:50 → IMCU/EMU 01-12 06:55
PROVIDERS: ADMIT Surgery; ATTEND Surgery
PROC: 0BH17EZ Insertion of Endotracheal Airway into Trachea, Via Natural or Artificial Opening (ICD-10-PCS; principal; 2020-12-23)
PROC: 5A1955Z Respiratory Ventilation, Greater than 96 Consecutive Hours (ICD-10-PCS; 2020-12-23)
PROC: 0D9670Z Drainage of Stomach with Drainage Device, Via Natural or Artificial Opening (ICD-10-PCS; 2020-12-23)
PROC: 0BH18EZ Insertion of Endotracheal Airway into Trachea, Via Natural or Artificial Opening Endoscopic (ICD-10-PCS; 2020-12-28)
PROC: 5A1955Z Respiratory Ventilation, Greater than 96 Consecutive Hours (ICD-10-PCS; 2020-12-28)
PROC: 009430Z Drainage of Intracranial Subdural Space with Drainage Device, Percutaneous Approach (ICD-10-PCS; 2021-01-05)
PROC: 0B113F4 Bypass Trachea to Cutaneous with Tracheostomy Device, Percutaneous Approach (ICD-10-PCS; 2021-01-09)
PROC: 0BJ08ZZ Inspection of Tracheobronchial Tree, Via Natural or Artificial Opening Endoscopic (ICD-10-PCS; 2021-01-09)
PROC: 0DH63UZ Insertion of Feeding Device into Stomach, Percutaneous Approach (ICD-10-PCS; 2021-01-09)
DX: S06.6X1A Traumatic subarachnoid hemorrhage with loss of consciousness of 30 minutes or less, initial encounter (principal); J96.01 Acute respiratory failure with hypoxia; J96.02 Acute respiratory failure with hypercapnia; J69.0 Pneumonitis due to inhalation of food and vomit; G96.08 Other cranial cerebrospinal fluid leak; D62 Acute posthemorrhagic anemia; E87.0 Hyperosmolality and hypernatremia; N39.0 Urinary tract infection, site not specified; E83.39 Other disorders of phosphorus metabolism; I50.9 Heart failure, unspecified; I11.0 Hypertensive heart disease with heart failure; E87.6 Hypokalemia; E83.42 Hypomagnesemia; I25.10 Atherosclerotic heart disease of native coronary artery without angina pectoris; R40.2352 Coma scale, best motor response, localizes pain, at arrival to emergency department; R40.2132 Coma scale, eyes open, to sound, at arrival to emergency department; R40.2242 Coma scale, best verbal response, confused conversation, at arrival to emergency department; R40.20 Unspecified coma; E87.5 Hyperkalemia; E11.65 Type 2 diabetes mellitus with hyperglycemia; B96.1 Klebsiella pneumoniae [K. pneumoniae] as the cause of diseases classified elsewhere; Z20.822 Contact with and (suspected) exposure to COVID-19; W18.30XA Fall on same level, unspecified, initial encounter; Z79.01 Long term (current) use of anticoagulants; Z79.4 Long term (current) use of insulin; Z79.899 Other long term (current) drug therapy; Z95.1 Presence of aortocoronary bypass graft; Z95.810 Presence of automatic (implantable) cardiac defibrillator; Z90.49 Acquired absence of other specified parts of digestive tract; Z78.1 Physical restraint status; Z79.84 Long term (current) use of oral hypoglycemic drugs
CPT/HCPCS: 31500; 31624; 36415; 36416; 36430; 36600; 70450; 71045; 71260; 72125; 74018; 74022; 74177; 80048; 80053; 81001; 82550; 82805; 83735; 83880; 84100; 84146; 84484; 85025; 85610; 85730; 86850; 86900; 86901; 87040; 87070; 87077; 87086; 87186; 87205; 93005; 93010; 93306; 93970; 94002; 94003; 94640; 94660; 95816; 95819; 95957; 96374; 96375; 96376; G0390; J0360; J0696; J1815; J1940; J1953; J2001; J2060; J2250; J2270; J2405; J2543; J2704; J2765; J3010; J3430; J3475; J3480; J3490; J7030; J7050; J7168; J7620; P9045; P9059; Q9967; S0028; U0003; U0005